=== PATIENT | male | born 1955 | race Caucasian/White ===

== ENCOUNTER 2018-02-20 09:05 | Emergency (ER) | payer MEDICAID ==
[~2018-02-20] VITALS: Ht 172.7 cm; Wt 75.0 kg
[2018-02-20 09:09] VITALS: BP 171/99
[2018-02-20] MEDS ORDERED: LOSA25TA12 PO (09:15)
[2018-02-20] MEDS ORDERED: HYDR12.529 PO (09:15)
[2018-02-20] MEDS ORDERED: GLIP5TAB12 PO (09:15)
[2018-02-20] MEDS ORDERED: METF500T4 PO (09:15)
== END 2018-02-20 09:37 | disposition left against medical advice (07) ==
LOC: ER 09:17
DX: R55 Syncope and collapse (principal)
CPT/HCPCS: 99281; 99283

== ENCOUNTER 2022-04-29 17:50 | Inpatient (IN) | payer OTHER ==
[~2022-04-29] VITALS: Ht 172.7 cm; Wt 75.3 kg
[~2022-04-29 17:50] MED LIST: ASPI-1406 MT; GLIP5TAB12 PO; LIP40 PO; LOSA25TA26 PO; METF-414 PO
[2022-04-29] MEDS ORDERED: PIPERACILLIN/TAZ 3.375G PREMIX 50 ML IV ONE (18:00)
[2022-04-29] MEDS ORDERED: VANCOMYCIN 1G PREMIX 200 ML IV ONE (18:00)
[2022-04-29] MEDS ORDERED: SODIUM CHLORIDE 0.9% 1,000 ML IV ONE ×2 (18:15→22:30)
[2022-04-29 18:45] LABS: BG CARBOXYHEMOGLOBIN 0.5 % (0.5-1.5); BG DEOXYHEMOGLOBIN 3.5 % (0.0-5.0); BG FRACTION INSPIRED OXYGEN 21; BG HCO3 ACT 19.1 mmol/L (22.0-26.0); BG METHEMOGLOBIN 0.3 % (0.0-1.5); BG OXYGEN SATURATION 96.5 % (92.0-98.5); BG OXYHEMOGLOBIN 95.7 % (94.0-97.0); BG PCO2 30.6 mmHg (35.0-45.0); BG PH 7.414 (7.350-7.450); BG PO2 88.2 mmHg (75.0-100.0); BG SAMPLE SITE RIGHT RADIAL; BG TOTAL HEMOGLOBIN 16.5 g/dL (12.0-18.0); BG VENT MODE ROOM AIR
[2022-04-29 18:52] LABS: HEMATOCRIT. 50.6 % (42.0-52.0); MEAN CORPUSCULAR HEMOGLOBIN 27.8 pg (28.0-32.0); MEAN PLATELET VOLUME 9.5 fl (7.4-10.4); PLATELET 433 x1000/uL (130-400); RED BLOOD CELL COUNT 5.75 mill/uL (4.7-6.1); RED CELL DISTRIBUTION WIDTH 14.8 % (11.6-14.6)
[2022-04-29 19:09] LABS: CLARITY URINE CLEAR (CLEAR); COLOR URINE YELLOW (YELLOW); KETONES URINE 2+ (NEGATIVE); LEUKOCYTE ESTERASE URINE NEGATIVE (NEGATIVE); NITRITE URINE NEGATIVE (NEGATIVE); OCCULT BLOOD URINE TRACE (NEGATIVE); PH URINE 5.5 (4.5-8.0); PROTEIN URINE 2+ (NEGATIVE); SPECIFIC GRAVITY URINE 1.032 (1.005-1.030); UROBILINOGEN URINE 0.2 E.U./dL (0.2-1.0)
[2022-04-29 19:30] LABS: *AMPHETAMINES SCREEN URINE NEGATIVE (NEGATIVE); *BARBITURATES SCREEN URINE NEGATIVE (NEGATIVE); *BENZODIAZEPINES SCREEN URINE NEGATIVE (NEGATIVE); *COCAINE SCREEN URINE NEGATIVE (NEGATIVE); CANNABINOID URINE SCREEN NEGATIVE (NEGATIVE); METHADONE URINE SCREEN NEGATIVE (NEGATIVE); OPIATES URINE SCREEN NEGATIVE (NEGATIVE); PHENCYCLIDINE URINE SCREEN NEGATIVE (NEGATIVE)
[2022-04-29 19:54] LABS: CHLORIDE 116 mEq/L (98-107)
[2022-04-29 19:54] LABS: PLATELET ESTIMATE INCREASED
[2022-04-29 20:03] LABS: ETHANOL BLOOD < 10 mg/dL
[2022-04-29 20:42] LABS: CREATINE KINASE 2274 IU/L (39-308)
[2022-04-29] MEDS ORDERED: ACETAMINOPHEN 325MG TABLET PO ONE (23:45)
[2022-04-29] MEDS ORDERED: ACETAMINOPHEN 650MG SUPP PR NR (23:45)
[2022-04-30 03:00] VITALS: BP 131/76
[2022-04-30 04:00] VITALS: BP 129/62
[2022-04-30 08:00] VITALS: BP 138/78
[2022-04-30] MEDS ORDERED: ONDANSETRON HCL 4MG/2ML INJ IV PRN (08:15)
[2022-04-30] MEDS ORDERED: DEXTROSE 50% WATER 50ML SYRINGE IV PRN (08:15)
[2022-04-30] MEDS: DEXTROSE 5% WATER 1,000 ML IV SCH ×2 (10:20→19:05)
[2022-04-30 12:00] VITALS: BP 118/71
[2022-04-30] MEDS: BLOOD SUGAR DIAGNOSTIC STRIP TEST SCH ×3 (12:10→20:44)
[2022-04-30] MEDS: INSULIN LISPRO 100 UNITS/ML SUBCUT SCH ×3 (13:11→20:44)
[2022-04-30 16:00] VITALS: BP 114/65
[2022-04-30 20:00] VITALS: BP 104/58
[2022-05-01] VITALS: BP 106/51
[2022-05-01 04:00] VITALS: BP 127/58
[2022-05-01] MEDS: DEXTROSE 5% WATER 1,000 ML IV SCH ×2 (04:40→13:22)
[2022-05-01 06:03] LABS: BASOPHILS % 0.6 % (0.0-2.0); EOSINOPHILS % 0.5 % (0.0-5.0); HEMATOCRIT. 39.1 % (42.0-52.0); MEAN CORPUSCULAR HEMOGLOBIN 28.2 pg (28.0-32.0); MEAN CORPUSCULAR VOLUME 84.9 fL (80.0-94.0); MONOCYTES % 7.5 % (2.0-8.0); NEUTROPHILS % 71.4 % (40.0-76.0); PLATELET 320 x1000/uL (130-400); RED BLOOD CELL COUNT 4.61 mill/uL (4.7-6.1); RED CELL DISTRIBUTION WIDTH 14.1 % (11.6-14.6)
[2022-05-01] MEDS: INSULIN LISPRO 100 UNITS/ML SUBCUT SCH ×4 (06:03→20:45)
[2022-05-01] MEDS: BLOOD SUGAR DIAGNOSTIC STRIP TEST SCH ×4 (06:03→20:45)
[2022-05-01 06:21] LABS: CHLORIDE 107 mEq/L (98-107)
[2022-05-01 08:00] VITALS: BP 115/69
[2022-05-01] MEDS ORDERED: POTASSIUM CHLORIDE 20MEQ/PACKET PO NR (08:30)
[2022-05-01 12:00] VITALS: BP 107/64
[2022-05-01] MEDS: PAROXETINE HCL 10MG TABLET PO SCH (15:41)
[2022-05-01 16:00] VITALS: BP 112/67
[2022-05-01 16:38] LABS: CREATINE KINASE 1096 IU/L (39-308)
[2022-05-01 20:00] VITALS: BP 119/66
[2022-05-01] MEDS: RISPERIDONE 0.5MG TABLET PO SCH (20:45)
[2022-05-02] VITALS: BP 118/69
[2022-05-02] MEDS: DEXTROSE 5% WATER 1,000 ML IV SCH ×3 (00:04→20:22)
[2022-05-02 04:00] VITALS: BP 115/67
[2022-05-02] MEDS: BLOOD SUGAR DIAGNOSTIC STRIP TEST SCH ×4 (06:03→20:32)
[2022-05-02] MEDS: INSULIN LISPRO 100 UNITS/ML SUBCUT SCH ×4 (06:31→20:32)
[2022-05-02] MEDS ORDERED: DIPHENHYDRAMINE 50MG/ML VIAL IV NR (07:45)
[2022-05-02] MEDS ORDERED: LORAZEPAM 2MG/ML CPJ IV NR (07:45)
[2022-05-02 08:00] VITALS: BP 111/67
[2022-05-02] MEDS: RISPERIDONE 0.5MG TABLET PO SCH ×2 (11:13→20:32)
[2022-05-02] MEDS: PAROXETINE HCL 10MG TABLET PO SCH (11:18)
[2022-05-02 12:00] VITALS: BP 131/74
[2022-05-02 16:00] VITALS: BP 135/76
[2022-05-02 20:00] VITALS: BP 109/62
[2022-05-03] VITALS: BP 113/69
[2022-05-03] MEDS: DEXTROSE 5% WATER 1,000 ML IV SCH ×2 (01:51→16:29)
[2022-05-03 04:00] VITALS: BP 113/62
[2022-05-03] MEDS: BLOOD SUGAR DIAGNOSTIC STRIP TEST SCH ×4 (07:08→21:25)
[2022-05-03] MEDS: INSULIN LISPRO 100 UNITS/ML SUBCUT SCH ×4 (07:09→22:10)
[2022-05-03 08:00] VITALS: BP 113/69
[2022-05-03] MEDS: PAROXETINE HCL 10MG TABLET PO SCH (08:02)
[2022-05-03] MEDS: RISPERIDONE 0.5MG TABLET PO SCH ×2 (08:02→22:09)
[2022-05-03 12:00] VITALS: BP 95/58
[2022-05-03] MEDS: MUPIROCIN 2% OINT 22GM TOP SCH ×2 (12:27→22:09)
[2022-05-03 16:00] VITALS: BP 105/63
[2022-05-03 20:00] VITALS: BP 110/68
[2022-05-04] VITALS: BP 105/62
[2022-05-04] MEDS: DEXTROSE 5% WATER 1,000 ML IV SCH ×3 (02:15→22:04)
[2022-05-04 04:00] VITALS: BP 106/66
[2022-05-04] MEDS: BLOOD SUGAR DIAGNOSTIC STRIP TEST SCH ×4 (06:52→21:40)
[2022-05-04] MEDS: INSULIN LISPRO 100 UNITS/ML SUBCUT SCH ×4 (07:03→22:01)
[2022-05-04 08:00] VITALS: BP 111/71
[2022-05-04] MEDS: RISPERIDONE 0.5MG TABLET PO SCH ×2 (09:49→21:59)
[2022-05-04] MEDS: PAROXETINE HCL 10MG TABLET PO SCH (09:49)
[2022-05-04] MEDS: MUPIROCIN 2% OINT 22GM TOP SCH ×2 (09:50→21:59)
[2022-05-04 12:00] VITALS: BP 107/68
[2022-05-04 12:20] LABS: BASOPHILS % 0.6 % (0.0-2.0); EOSINOPHILS % 1.5 % (0.0-5.0); HEMATOCRIT. 36.4 % (42.0-52.0); HEMOGLOBIN. 12.1 g/dL (14.0-18.0); LYMPHOCYTES % 17.2 % (20.0-50.0); MEAN CORPUSCULAR VOLUME 84.5 fL (80.0-94.0); MEAN PLATELET VOLUME 9.3 fl (7.4-10.4); MONOCYTES % 8.7 % (2.0-8.0); PLATELET 378 x1000/uL (130-400); RED BLOOD CELL COUNT 4.31 mill/uL (4.7-6.1); RED CELL DISTRIBUTION WIDTH 13.5 % (11.6-14.6)
[2022-05-04 12:42] LABS: CHLORIDE 103 mEq/L (98-107)
[2022-05-04 13:06] LABS: HIV SCREEN 4G Non Reactive (Non Reactive)
[2022-05-04 16:00] VITALS: BP 112/75
[2022-05-04 20:00] VITALS: BP 105/65
[2022-05-05] VITALS: BP 102/52
[2022-05-05 04:00] VITALS: BP 111/52
[2022-05-05] MEDS: BLOOD SUGAR DIAGNOSTIC STRIP TEST SCH ×4 (06:42→21:32)
[2022-05-05] MEDS: INSULIN LISPRO 100 UNITS/ML SUBCUT SCH ×4 (07:40→21:48)
[2022-05-05 08:00] VITALS: BP 114/69
[2022-05-05] MEDS: MUPIROCIN 2% OINT 22GM TOP SCH ×2 (10:07→21:47)
[2022-05-05] MEDS: PAROXETINE HCL 10MG TABLET PO SCH (10:07)
[2022-05-05] MEDS: RISPERIDONE 0.5MG TABLET PO SCH ×2 (10:07→21:47)
[2022-05-05] MEDS: DEXTROSE 5% WATER 1,000 ML IV SCH ×2 (10:08→18:45)
[2022-05-05 12:00] VITALS: BP 115/71
[2022-05-05 16:00] VITALS: BP 120/75
[2022-05-05 20:00] VITALS: BP 118/70
[2022-05-06] VITALS: BP 109/71
[2022-05-06 04:00] VITALS: BP 116/66
[2022-05-06] MEDS: DEXTROSE 5% WATER 1,000 ML IV SCH ×2 (04:15→15:05)
[2022-05-06] MEDS: BLOOD SUGAR DIAGNOSTIC STRIP TEST SCH ×4 (06:56→21:47)
[2022-05-06] MEDS: INSULIN LISPRO 100 UNITS/ML SUBCUT SCH ×4 (07:06→21:46)
[2022-05-06 08:00] VITALS: BP 119/69
[2022-05-06] MEDS: RISPERIDONE 0.5MG TABLET PO SCH ×2 (09:17→21:29)
[2022-05-06] MEDS: PAROXETINE HCL 10MG TABLET PO SCH (09:17)
[2022-05-06] MEDS: MUPIROCIN 2% OINT 22GM TOP SCH ×2 (09:17→21:46)
[2022-05-06 12:35] VITALS: BP 115/75
[2022-05-06 16:00] VITALS: BP 95/57
[2022-05-06 20:00] VITALS: BP 114/73
[2022-05-07] VITALS: BP 132/84
[2022-05-07 04:00] VITALS: BP 121/75
[2022-05-07] MEDS: BLOOD SUGAR DIAGNOSTIC STRIP TEST SCH ×4 (06:42→21:19)
[2022-05-07 08:00] VITALS: BP 103/74
[2022-05-07] MEDS: INSULIN LISPRO 100 UNITS/ML SUBCUT SCH ×4 (08:45→21:23)
[2022-05-07] MEDS: PAROXETINE HCL 10MG TABLET PO SCH (08:46)
[2022-05-07] MEDS: RISPERIDONE 0.5MG TABLET PO SCH ×2 (08:46→21:18)
[2022-05-07] MEDS: MUPIROCIN 2% OINT 22GM TOP SCH ×2 (08:51→21:21)
[2022-05-07] MEDS: DEXTROSE 5% WATER 1,000 ML IV SCH ×2 (08:51→20:15)
[2022-05-07 12:00] VITALS: BP 94/54
[2022-05-07 16:00] VITALS: BP 109/75
[2022-05-07] MEDS ORDERED: LACTULOSE 20G/30ML UDC PO NR (17:15)
[2022-05-07] MEDS: DOCUSATE SODIUM 250MG CAPSULE PO SCH (18:07)
[2022-05-07 20:00] VITALS: BP 90/68
[2022-05-08] VITALS: BP 95/65
[2022-05-08 05:00] VITALS: BP 110/70
[2022-05-08] MEDS: DEXTROSE 5% WATER 1,000 ML IV SCH (06:15)
[2022-05-08] MEDS: BLOOD SUGAR DIAGNOSTIC STRIP TEST SCH ×4 (06:16→21:00)
[2022-05-08 08:00] VITALS: BP 118/82
[2022-05-08] MEDS: INSULIN LISPRO 100 UNITS/ML SUBCUT SCH ×4 (09:05→23:05)
[2022-05-08] MEDS: DOCUSATE SODIUM 250MG CAPSULE PO SCH (09:06)
[2022-05-08] MEDS: PAROXETINE HCL 10MG TABLET PO SCH (09:06)
[2022-05-08] MEDS: RISPERIDONE 0.5MG TABLET PO SCH ×2 (09:06→23:04)
[2022-05-08] MEDS: MUPIROCIN 2% OINT 22GM TOP SCH ×2 (09:07→23:05)
[2022-05-08 12:00] VITALS: BP 102/72
[2022-05-08] MEDS ORDERED: ACETAMINOPHEN 325MG TABLET PO PRN (12:45)
[2022-05-08 16:00] VITALS: BP 101/71
[2022-05-08 16:45] LABS: BASOPHILS % 0.4 % (0.0-2.0); EOSINOPHILS % 1.2 % (0.0-5.0); HEMATOCRIT. 39.2 % (42.0-52.0); HEMOGLOBIN. 12.9 g/dL (14.0-18.0); LYMPHOCYTES % 17.5 % (20.0-50.0); MEAN CORPUSCULAR HEMOGLOBIN 27.7 pg (28.0-32.0); MEAN CORPUSCULAR VOLUME 84.4 fL (80.0-94.0); MONOCYTES % 10.1 % (2.0-8.0); NEUTROPHILS % 70.8 % (40.0-76.0); PLATELET 515 x1000/uL (130-400); RED BLOOD CELL COUNT 4.65 mill/uL (4.7-6.1); RED CELL DISTRIBUTION WIDTH 13.9 % (11.6-14.6)
[2022-05-08 16:58] LABS: CHLORIDE 99 mEq/L (98-107)
[2022-05-08 20:00] VITALS: BP 98/62
[2022-05-09] VITALS: BP 114/68
[2022-05-09] MEDS: BLOOD SUGAR DIAGNOSTIC STRIP TEST SCH ×3 (07:20→17:04)
[2022-05-09 08:00] VITALS: BP 86/56
[2022-05-09] MEDS: MUPIROCIN 2% OINT 22GM TOP SCH (09:00)
[2022-05-09] MEDS: DOCUSATE SODIUM 250MG CAPSULE PO SCH (10:15)
[2022-05-09] MEDS: RISPERIDONE 0.5MG TABLET PO SCH (10:16)
[2022-05-09] MEDS: PAROXETINE HCL 10MG TABLET PO SCH (10:16)
[2022-05-09] MEDS: INSULIN LISPRO 100 UNITS/ML SUBCUT SCH ×2 (10:21→13:23)
[2022-05-09 12:00] VITALS: BP 95/57
[2022-05-09 16:00] VITALS: BP 117/77
[2022-05-09 16:30] VITALS: BP 117/77
== END 2022-05-09 17:35 | DRG 351 ==
LOC: ER 17:50 → MICUSO 23:40 → EDBEDREQSVC 23:43 → EDBEDREQTM 23:43 → EDBEDREQ 23:43 → 8WST 04-30 01:23 → 6EST 05-06 12:29
PROVIDERS: ADMIT Internal Medicine; ATTEND Internal Medicine
PROC: 4A10X4Z Monitoring of Central Nervous Electrical Activity, External Approach (ICD-10-PCS; 2022-05-03)
PROC: 0JB70ZZ Excision of Back Subcutaneous Tissue and Fascia, Open Approach (ICD-10-PCS; principal; 2022-05-09)
DX: M62.82 Rhabdomyolysis (principal); G93.41 Metabolic encephalopathy; L89.153 Pressure ulcer of sacral region, stage 3; F29 Unspecified psychosis not due to a substance or known physiological condition; M48.56XA Collapsed vertebra, not elsewhere classified, lumbar region, initial encounter for fracture; L02.414 Cutaneous abscess of left upper limb; E11.65 Type 2 diabetes mellitus with hyperglycemia; F10.20 Alcohol dependence, uncomplicated; F17.210 Nicotine dependence, cigarettes, uncomplicated; R55 Syncope and collapse; G47.00 Insomnia, unspecified; M48.02 Spinal stenosis, cervical region; M48.061 Spinal stenosis, lumbar region without neurogenic claudication; Z20.822 Contact with and (suspected) exposure to COVID-19; I10 Essential (primary) hypertension; J44.9 Chronic obstructive pulmonary disease, unspecified; M43.6 Torticollis; Z91.83 Wandering in diseases classified elsewhere
CPT/HCPCS: 36415; 36600; 71045; 72141; 72148; 80048; 80053; 80061; 80305; 80307; 80320; 80329; 81003; 82040; 82140; 82375; 82550; 82805; 82962; 83036; 83605; 83615; 83880; 84134; 84145; 84443; 84484; 85025; 86140; 86803; 86850; 86900; 87389; 87426; 93005; 93306; 93970; 97110; 97162; 97166; 99291; J1200; J1815; J2060; J2543; J3370; J7060; J7070; G0480